=== PATIENT | male | born 1945 | race Asian ===

== ENCOUNTER 2017-07-23 01:01 | Outpatient (CLI) | payer MEDICARE, MEDICAID | END 2017-07-23 23:59 | disposition home or self-care (01) | LOC: DIABETIC 01:01 | PROVIDERS: ATTEND Internal Medicine | DX: E11.65 Type 2 diabetes mellitus with hyperglycemia (principal); E11.21 Type 2 diabetes mellitus with diabetic nephropathy; I10 Essential (primary) hypertension | CPT/HCPCS: G0108 ==

== ENCOUNTER 2017-10-22 04:58 | Outpatient (CLI) | payer MEDICARE, MEDICAID | END 2017-10-22 23:59 | disposition home or self-care (01) | LOC: DIABETIC 04:58 | PROVIDERS: ATTEND Internal Medicine | DX: E11.21 Type 2 diabetes mellitus with diabetic nephropathy (principal); E11.65 Type 2 diabetes mellitus with hyperglycemia; I10 Essential (primary) hypertension | CPT/HCPCS: G0108 ==

== ENCOUNTER 2018-01-29 01:32 | Outpatient (CLI) | payer MEDICARE, MEDICAID | END 2018-01-29 23:59 | disposition home or self-care (01) | LOC: DIABETIC 01:32 | PROVIDERS: ATTEND Internal Medicine | DX: E11.65 Type 2 diabetes mellitus with hyperglycemia (principal); E11.21 Type 2 diabetes mellitus with diabetic nephropathy; I10 Essential (primary) hypertension; Z79.82 Long term (current) use of aspirin | CPT/HCPCS: G0108 ==

== ENCOUNTER 2018-05-27 01:47 | Outpatient (CLI) | payer MEDICARE, MEDICAID | END 2018-05-27 23:59 | disposition home or self-care (01) | LOC: DIABETIC 01:47 | PROVIDERS: ATTEND Internal Medicine | DX: E11.65 Type 2 diabetes mellitus with hyperglycemia (principal); E11.21 Type 2 diabetes mellitus with diabetic nephropathy; I10 Essential (primary) hypertension; Z79.82 Long term (current) use of aspirin; Z79.84 Long term (current) use of oral hypoglycemic drugs; Z79.899 Other long term (current) drug therapy; Z79.4 Long term (current) use of insulin | CPT/HCPCS: G0108 ==

== ENCOUNTER 2018-08-27 01:26 | Outpatient (CLI) | payer MEDICARE, MEDICAID | END 2018-08-27 23:59 | disposition home or self-care (01) | LOC: DIABETIC 01:26 | PROVIDERS: ATTEND Internal Medicine | DX: E11.65 Type 2 diabetes mellitus with hyperglycemia (principal); E11.40 Type 2 diabetes mellitus with diabetic neuropathy, unspecified; E11.21 Type 2 diabetes mellitus with diabetic nephropathy; Z79.82 Long term (current) use of aspirin; Z79.4 Long term (current) use of insulin; Z79.84 Long term (current) use of oral hypoglycemic drugs | CPT/HCPCS: G0108 ==

== ENCOUNTER 2018-12-03 02:29 | Outpatient (CLI) | payer MEDICARE, MEDICAID | END 2018-12-03 23:59 | disposition home or self-care (01) | LOC: DIABETIC 02:29 | PROVIDERS: ATTEND Internal Medicine | DX: E11.65 Type 2 diabetes mellitus with hyperglycemia (principal); E11.21 Type 2 diabetes mellitus with diabetic nephropathy; E11.40 Type 2 diabetes mellitus with diabetic neuropathy, unspecified; Z79.84 Long term (current) use of oral hypoglycemic drugs; Z79.4 Long term (current) use of insulin | CPT/HCPCS: G0108 ==

== ENCOUNTER 2019-03-04 02:04 | Outpatient (CLI) | payer MEDICARE, MEDICAID | END 2019-03-04 23:59 | disposition home or self-care (01) | LOC: DIABETIC 02:04 | PROVIDERS: ATTEND Family Medicine | DX: E11.65 Type 2 diabetes mellitus with hyperglycemia (principal); Z79.84 Long term (current) use of oral hypoglycemic drugs; Z79.4 Long term (current) use of insulin; Z79.899 Other long term (current) drug therapy | CPT/HCPCS: G0108 ==

== ENCOUNTER 2019-06-01 05:04 | Outpatient (CLI) | payer MEDICARE, MEDICAID | END 2019-06-01 23:59 | disposition home or self-care (01) | LOC: DIABETIC 05:04 | PROVIDERS: ATTEND Family Medicine | DX: E11.65 Type 2 diabetes mellitus with hyperglycemia (principal); Z79.82 Long term (current) use of aspirin; Z79.4 Long term (current) use of insulin | CPT/HCPCS: G0108 ==

== ENCOUNTER 2024-03-05 14:25 | Outpatient (CLI) | payer MEDICARE, MEDICAID | END 2024-03-05 23:59 | disposition home or self-care (01) | LOC: RAD 14:25 | PROVIDERS: ATTEND Psychiatry & Neurology Neurology | DX: R13.10 Dysphagia, unspecified (principal); G20.A1 Parkinson's disease without dyskinesia, without mention of fluctuations | CPT/HCPCS: 74230 ==

== ENCOUNTER 2024-12-16 16:22 | Outpatient (CLI) | payer MEDICARE, MEDICAID ==
--- NOTE | 2024-12-17 09:32 | RADIOLOGY REPORT ---
EXAM: DI HUMERUS (2VWS), DI SHOULDER, COMPLETE (MIN 2 VWS) CLINICAL INDICATION: PAIN, JOINT, SHOULDER RIGHT TECHNIQUE: DI HUMERUS (2VWS), DI SHOULDER, COMPLETE (MIN 2 VWS) Comparison: None FINDINGS/IMPRESSION: There is no evidence of acute fracture or dislocation. The visualized joint space is well maintained. The alignment is anatomical. There is no radiopaque foreign body.
--- NOTE | 2024-12-17 09:33 | RADIOLOGY REPORT ---
EXAM: DI SHOULDER, COMPLETE (MIN 2 VWS) CLINICAL INDICATION: PAIN, JOINT, SHOULDER RIGHT TECHNIQUE: DI SHOULDER, COMPLETE (MIN 2 VWS) Comparison: None FINDINGS/IMPRESSION: There is no evidence of acute fracture or dislocation. The visualized joint space is well maintained. The alignment is anatomical. There is no radiopaque foreign body.
== END 2024-12-16 23:59 | disposition home or self-care (01) ==
LOC: RAD 16:22
PROVIDERS: ATTEND Student in an Organized Health Care Education/Training Program
DX: M25.511 Pain in right shoulder (principal)
CPT/HCPCS: 73030; 73060

== ENCOUNTER 2025-06-10 11:45 | Emergency (ER) | payer MEDICARE, MEDICAID ==
[~2025-06-10] VITALS: Ht 165.1 cm; Wt 64.0 kg
[2025-06-10 12:08] VITALS: TEMP 98.5
--- NOTE | 2025-06-10 12:27 | Physician Documentation ---
History of Present Illness General Chief Complaint: Hyperglycemia Stated Complaint: HIGH BLOOD SUGAR Time Seen by MD: 12:26 History of Present Illness Initial Comments 80-year-old male who is at assisted living and felt weak and dizzy today when he woke up and was found to have high blood sugar at assisted living. The patient states he has been feeling dizzy over last four days. The patient denies any chest pain he denies any shortness of breath he denies any fevers. Patient does have a history of diabetes. EMS reports the patient had an episode of vomiting today, patient currently denies any nausea or abdominal pain Medication Reconciliation Allergies: Coded Allergies: niacin (Unverified Allergy, Unknown, 06/10/25) Past Medical History Past Medical History: Diabetes Review of Systems All Other Systems at this time: Reviewed and Negative Physical Exam Physical Exam Vital Signs: Temperature: 98.5, Heart Rate: 86, Respiratory Rate: 16, BP: 162/90, Pulse Oximetry: 98, Weight: 64.000 Physical Exam VITALS: Reviewed and as above. GENERAL: Alert, no apparent distress. HEENT: Normocephalic, atraumatic, PERRL, EOMI, dry mucosa, no erythema RESPIRATORY: Lungs clear, normal breath sounds, no respiratory distress. CHEST: No accessory muscle use, no retractions CV: Regular rate, rhythm, no edema, no murmur, No: JVD GI: Soft, non-tender, bowels sounds present, no rebound, guarding, or rigidity BACK: No CVA tenderness, or swelling MUSCULOSKELETAL: No deformities, no edema SKIN: Warm and dry, no rash NEURO: Oriented x4, No motor or sensory deficit PSYCH: Normal mood and affect, no agitation Progress Results/Orders Results/Orders Completed Orders - TONO HERNANDEZ MD Cbc/Diff (06/10/25 12:00) BMP (06/10/25 12:00) CMP (06/10/25 12:00) Normal Saline 1000ml (0.9% Sodium Chlori (06/10/25 13:00) Procalcitonin (06/10/25 13:02) Normal Saline 1000ml (0.9% Sodium Chlori (06/10/25 13:05) Insulin Regular, Human (Humulin R 10 Uni (06/10/25 13:05) Ua W/Microscopic, Cult If Ind (06/10/25 13:07) Metoprolol Tartrate Tablet (Lopressor Ta (06/10/25 14:20) Vital Signs 06/10/25 06/10/25 06/10/25 06/10/25 12:08 12:51 14:01 14:35 Temp 98.5 Pulse 86 85 82 Resp 16 16 17 B/P (MAP) 162/90 183/85 (117) Pulse Ox 98 100 06/10/25 14:42 Pulse 80 Resp 16 B/P (MAP) 177/92 (120) Pulse Ox 100 O2 Flow Rate 0 Laboratory Tests Test 06/10/25 12:01 06/10/25 12:19 06/10/25 12:24 06/10/25 13:07 White Blood Count 8.9 Red Blood Count 4.96 Hemoglobin 11.6 L Hematocrit 36.7 L Mean Corpuscular Volume 74.1 L Mean Corpuscular Hemoglobin 23.5 L Mean Corpuscular Hemoglobin Concent 31.7 L Red Cell Distribution Width 16.7 H Platelet Count 256 Mean Platelet Volume 7.8 Neutrophils (%) (Auto) 80.0 H Lymphocytes (%) (Auto) 12.4 L Monocytes (%) (Auto) 7.3 Eosinophils (%) (Auto) 0.1 Basophils (%) (Auto) 0.2 Neutrophils # (Auto) 7.1 Lymphocytes # (Auto) 1.1 Monocytes # (Auto) 0.7 Eosinophils # (Auto) 0.0 Basophils # (Auto) 0.0 CBC Comment Sodium Level 138 Potassium Level 4.5 Chloride Level 105 Carbon Dioxide Level 25.3 Anion Gap 8 Blood Urea Nitrogen 23 H Creatinine 1.51 H Estimated GFR/1.73 m2 45 BUN/Creatinine Ratio 15.2 Glucose Level 384 H Calcium Level 8.5 Total Bilirubin 0.4 Aspartate Amino Transf (AST/SGOT) 11 Alanine Aminotransferase (ALT/SGPT) 6 L Alkaline Phosphatase 109 Total Protein 7.4 Albumin 3.4 Globulin 4.0 Albumin/Globulin Ratio 0.9 L Chemistry Comments Procalcitonin < 0.05 Urine Specimen Description Non-specified Urine Color Yellow Urine Clarity Clear Urine pH 6.0 Urine Specific [place] 1.015 Urine Protein 30 H Urine Glucose (UA) >=1000 H Urine Ketones Trace H Urine Occult Blood Negative Urine Nitrite Negative Urine Bilirubin Negative Urine Urobilinogen 0.2 Urine Leukocyte Esterase Negative Urine RBC None seen Urine WBC 0-4 Urine Squamous Epithelial Cells Few Urine Bacteria None seen Urine Mucus None seen Urine Culture Indicated Not ind Volume Urine Centrifuged 10 ml Urine Comment Test 06/10/25 13:14 06/10/25 14:32 Glucometer 309 H 203 H Medical Decision Making Additional information obtaine: old records, family Findings The patient is a 80-year-old male who has a an elevated blood sugar the patient has no significant complaints other than the elevated blood sugar the patient has a recent steroid shot did not take his recent dose of insulin the patient was given insulin in the emergency room he was given IV fluids with improvement of his blood sugar in his labs were checked there was no evidence of infection at this time the patient will be discharged the patient's pulse oximetry was interpreted as normal and adequate Differential Diagnosis sepsis Departure Impression: Primary Impression: Hyperglycemia Discharge Instructions: Hyperglycemia, [id number] Additional Instructions: Continue to take your medications, return for worsening of your symptoms. Follow up with your healthcare providers as soon as possible. Referrals: NO PRIMARY CARE PROVIDER (PCP) Signature Scribe Signature: no scribe Attestation: The note accurately reflects work and decisions made by me.Tono Hernandez MD 06/12/25 20:17 TONO HERNANDEZ MD Jun 10, 2025 12:26
[2025-06-10 12:38] LABS: MEAN PLATELET VOLUME 7.8 FL (7.4-10.4); RED CELL DISTRIBUTION WIDTH 16.7 % (11.5-14.5)
[2025-06-10] MEDS: normal saline 1000ML IV soln IVB ONE ×2 (13:03→14:35)
[2025-06-10 13:06] LABS: CREATININE 1.51 MG/DL (0.60-1.10); TOTAL CARBON DIOXIDE 25.3 MMOL/L (24-32); eCRCL 34 ML/MIN; eGFR 45 ML/MIN
[2025-06-10] MEDS: insulin regular, human 10 units/0.1 ml syringe SQ ONE (13:20)
[2025-06-10 13:36] LABS: LEUKOCYTE ESTERASE ,URINE NEGATIVE (Neg); NITRITES, URINE NEGATIVE (Neg); OCCULT BLOOD,URINE NEGATIVE (Neg)
[2025-06-10 13:39] LABS: UA COLLECTION TYPE NON-SPECIFIED
[2025-06-10 13:48] LABS: MUCUS STRANDS NONE SEEN /LPF (Neg); SQUAMOUS EPITHELIAL CELL,UR FEW /LPF (FEW)
[2025-06-10 14:42] VITALS: BP 177/92; PULSE 80; RESP 16; O2SAT 100
== END 2025-06-10 15:10 | disposition home or self-care (01) ==
LOC: ER 11:46
DX: E11.65 Type 2 diabetes mellitus with hyperglycemia (principal); Z88.8 Allergy status to other drugs, medicaments and biological substances
CPT/HCPCS: 36415; 80053; 81001; 82948; 84145; 85025; 96360; 96361; 96372; 99283; J1815; J7030